=== PATIENT | female | born 1995 | race Two or more races ===

== ENCOUNTER 2016-09-08 13:21 | Inpatient (IN) | payer MEDICAID, OTHER ==
[2016-09-08] VITALS (28 sets, daily range): BP systolic 133–179; BP diastolic 69–112
[~2016-09-08] VITALS: Ht 167.6 cm; Wt 70.0 kg
[2016-09-08] MEDS ORDERED: METH10CO PO (13:30)
[2016-09-08 15:07] LABS: METHADONE URINE NEGATIVE (NEGATIVE)
[2016-09-08] MEDS ORDERED: LABETALOL HCL 100 MG/20 ML VIAL IV ONE (15:15)
[2016-09-08] MEDS ORDERED: BETAMETHASONE SOLUSPAN 6MG/ML INJ 5ML (J0702) IM SCH (15:15)
[2016-09-08 16:07] LABS: BASO # 0.1 K/mm3 (0.0-0.2); BASO % 0.4 % (0.0-1.0); EOS # 0.1 K/mm3 (0.0-0.50); EOS % 0.5 % (0.0-3.0); LARGE UNSTAINED CELL # 0.2 K/mm3 (0.0-0.4); LARGE UNSTAINED CELL % 1.4 % (0.0-4.0); LYMPH # 2.6 K/mm3 (1.5-6.5); LYMPH % 19.8 % (24.0-44.0); MEAN CORPUSCULAR HEMOGLOBIN 26.7 pg (27.0-33.0); MEAN CORPUSCULAR HGB CONC 31.9 g/dl (32.0-36.5); MEAN CORPUSCULAR VOLUME 83.9 fl (80.0-96.0); MONO # 0.6 K/mm3 (0.0-0.8); NEUTROPHILS % 72.9 % (36.0-66.0); PLATELET COUNT, AUTOMATED 460 k/mm3 (150-450); RED CELL DISTRIBUTION WIDTH 14.4 % (11.5-14.5); WHITE BLOOD COUNT 12.4 K/mm3 (4.0-10.0)
[2016-09-08 16:16] LABS: ALT/SGPT 10 U/L (12-78); AST/SGOT 14 U/L (15-37); BILIRUBIN,TOTAL 0.4 MG/DL (0.2-1.0); CREATININE FOR GFR 0.42 MG/DL (0.55-1.02)
--- NOTE | 2016-09-08 16:34 | HPE ---
DATE OF ADMISSION: 09/08/2016 Peyton is a 20-year-old 1, para 0 at 33-4/7 weeks gestation with a patient reported an EDC of 10/23/2016. Unknown basis for this EDC at this time. There are no records for review. This history and physical is based purely on interview. The patient presents to labor and delivery today with report of a gush of fluid at approximately 01:30 upon waking up. She went to the restroom cleaned her self up and denies any further leakage of fluid. She does deny any regular contractions and she denies vaginal bleeding. She does report that the fetus has been active. This patient has had no care on record. She has had a few intermittent hospital visits in [place] and again in [place]. Her care is complicated by current heroin use. She has been in and out of rehab for the last couple of years. She reports her last use of heroin three days ago. Her urine toxicology comes back positive today for opiates in the high range. She also reports hepatitis C. There are no OB labs for review at this time. PAST MEDICAL HISTORY: Her past medical history significant for hepatitis C status. SURGERIES: None. FAMILY HISTORY: Is unknown. She is adopted, has been in foster care system. SOCIAL HISTORY: She is single. The father of baby is not involved in her life, he is a in correction in [place]. She does report smoking half a pack per day. She does deny alcohol use. Again heroin use as well as Subutex for treatment on an off throughout the . She does report her last use 3 days ago. She does deny history of any sexually transmitted infections and she denies any history of abuse physical, sexual and emotional allergies. ALLERGIES: No known drug allergies. MEDICATIONS: None. OBJECTIVE: Temperature 98.1, pulse 92 and respirations 18, blood pressures are elevated in the severe range ranging from 179/104, 149/91, 169/107, 161/101, 165/100, 165/107, 170/107. She is alert and oriented times three. She does not appear to be in any acute distress. heart rate is 148 with positive excels and no decelerations observed. There is no pattern of regular contractions. Sterile speculum exam was performed. Negative Valsalva, negative pooling, negative Nitrazine, and negative ferning. Sterile vaginal exam is deferred at this time due to the patient's discomfort with speculum exam. GBS was obtained. Her abdomen is gravid. She measures 29 cm fundal height. I was unable to determine presentation due to the patient's guarding with the abdominal exam. ASSESSMENT Intrauterine at 33-4/7 weeks gestation. Unknown EDC confirmed. heart rate category one. Severe range blood pressures likely preeclampsia. PLAN: Per consult with Dr. Amanda Alamo admit the patient to labor and delivery. GBS, Saline lock, IV labetalol 20 mg IV STAT now, bedside growth ultrasound for DON growth and presentation. Betamethasone for lung maturity. panel drawn, preeclampsia profile drawn, spot urine ordered, bedrest with bathroom privileges, sequentials. After return of labs we will review and consult with Dr. Amanda Alamo regarding further plan of care. May consider induction of labor if blood pressures remain in the severe range.
--- NOTE | 2016-09-08 17:20 | REP ---
Obstetric sonography: History: Supervision of . Preeclampsia. Presentation DON growth. No care. Findings: Scanning demonstrates a viable single intrauterine cephalic fetus. motion is observed and heart rate is recorded 150 beats per minute. A posterior placenta is seen grade 2 without evidence of previa or abruption. Amniotic fluid is subjectively low. DON is decreased at 4.0 cm (8.2-24.7 cm). Closed cervical length is 2.8 cm measured transabdominally. Umbilical cord is seen draping across the shoulders. head is very low in the pelvis rendering head measurements less than optimal. The following anatomic structures are identified and felt to be unremarkable: lungs, four-chamber heart, left and right ventricular outflow tract view, diaphragm, abdominal wall cord insertion, three-vessel umbilical cord, kidneys and bladder. Biometry chart: BPD 7.9 cm 31 weeks 5 days Head circumference 28.5 cm 31 weeks 2 days Abdominal circumference 25.5 cm 29 weeks 5 days Femur length 5.7 cm 29 weeks 6 days Humeral length 5.2 cm 30 weeks 2 days HC/AC ratio normal 1.12, cephalic index normal 0.78 estimated weight 1503 grams 3 pounds 5 ounces less than 3rd percentile for 33 weeks 4 days. SD ratio in the umbilical cord artery by Doppler is upper range of normal 3.09 (2.00-3.00). Impression: Viable single intrauterine gestation at 30 weeks 4 days by today's composite sonographic criteria. According to the patient's most recently given due date her expected gestational age estimate would be 33 weeks 4 days. Estimated weight is less than 3rd percentile for this 82-tudp-7-day estimate. DAO by prior given due date is 10/23/2016. DAO by today's sonographic criteria would be 11/13/2016. head is low in position and difficult to measure. There is oligohydramnios. DON is 4.0 cm. SD ratio in the umbilical cord artery by Doppler is at the upper range of normal, 3.09. Signed by Antonio Lugo MD 09/08/2016 08:26 P
[2016-09-09 00:05] VITALS: BP 138/72
[2016-09-09 02:34] VITALS: BP 135/87
[2016-09-09 06:46] LABS: HBsAg Prenatal NEGATIVE (NEGATIVE)
[2016-09-09 07:22] VITALS: BP 148/104
[2016-09-13 14:10] LABS: HEPATITIS C QUANTITATION HCV Not Detected IU/mL (.)
== END 2016-09-09 08:13 | disposition left against medical advice (07) | DRG 566 ==
LOC: M LDO 13:21 → M LDI 15:13
PROVIDERS: ADMIT Advanced Practice Midwife; ATTEND Advanced Practice Midwife
DX: O13.3 Gestational [pregnancy-induced] hypertension without significant proteinuria, third trimester (principal); Z3A.33 33 weeks gestation of pregnancy; F11.20 Opioid dependence, uncomplicated; B19.20 Unspecified viral hepatitis C without hepatic coma; O41.03X0 Oligohydramnios, third trimester, not applicable or unspecified; O26.843 Uterine size-date discrepancy, third trimester; O36.5930 Maternal care for other known or suspected poor fetal growth, third trimester, not applicable or unspecified; O99.323 Drug use complicating pregnancy, third trimester; O98.413 Viral hepatitis complicating pregnancy, third trimester

== ENCOUNTER → 2016-12-15 | Outpatient (CLI) | payer MEDICAID ==
[~2016-12-15] MED LIST: METH10CO PO
== END ==
LOC: M OUTALCOH 15:44
PROVIDERS: ATTEND Psychiatry & Neurology Psychiatry
DX: F11.20 Opioid dependence, uncomplicated (principal)

== ENCOUNTER 2017-01-29 22:57 | Inpatient (IN) | payer MEDICAID, OTHER ==
[~2017-01-29] VITALS: Ht 167.6 cm; Wt 68.2 kg
[2017-01-30] MEDS ORDERED: ONDANSETRON 4MG/2ML VIAL (J2405) IV ONE (03:00)
[2017-01-30] MEDS ORDERED: NS 1,000 ML IV ONE (03:00)
[2017-01-30] MEDS ORDERED: KETOROLAC 30 MG/ML VIAL (J1885) IV ONE (03:00)
[2017-01-30 03:55] LABS: MEAN CORPUSCULAR HEMOGLOBIN 27.1 pg (27.0-33.0); MEAN CORPUSCULAR HGB CONC 32.6 g/dl (32.0-36.5); MEAN CORPUSCULAR VOLUME 83.2 fl (80.0-96.0); PLATELET COUNT, AUTOMATED 308 10^3/uL (150-450); RED CELL DISTRIBUTION WIDTH 13.7 % (11.5-14.5); WHITE BLOOD COUNT 14.1 10^3/uL (4.0-10.0)
[2017-01-30 04:07] LABS: CONTROL LINE HCG INT CTR LINE PRESENT
[2017-01-30 04:16] LABS: ADD MANUAL DIFFER YES; BLASTS POS FLAG; DIFF SLIDE NUMBER 74; POSITIVE DIFF POS FLAG; POSITIVE MORPH POS FLAG
[2017-01-30 04:20] LABS: ALBUMIN 3.5 GM/DL (3.2-5.2); ALBUMIN/GLOBULIN RATIO 0.76 (1.00-1.93); ALKALINE PHOSPHATASE 462 U/L (45-117); ALT/SGPT 2834 U/L (12-78); ANION GAP 6 MEQ/L (8-16); AST/SGOT 1903 U/L (7-37); BILIRUBIN,DIRECT 3.9 MG/DL (0.0-0.2); BILIRUBIN,TOTAL 5.4 MG/DL (0.2-1.0); BLOOD UREA NITROGEN 10 MG/DL (7-18); CALCIUM LEVEL 8.9 MG/DL (8.5-10.1); CARBON DIOXIDE LEVEL 28 MEQ/L (21-32); CHLORIDE LEVEL 103 MEQ/L (98-107); CREATININE FOR GFR 0.84 MG/DL (0.55-1.02); GLUCOSE, FASTING 83 MG/DL (70-105); POTASSIUM SERUM 4.5 MEQ/L (3.5-5.1); SODIUM LEVEL 137 MEQ/L (136-145); TOTAL PROTEIN 8.1 GM/DL (6.4-8.2)
[2017-01-30] MEDS ORDERED: ISOVUE-370 76% 100ML VIAL (Q9967) As Ordered ONE (04:45)
[2017-01-30 04:54] LABS: BASOPHILS 2 % (0-4); EOSINOPHILS 1 % (0-5)
[2017-01-30 04:55] LABS: INR 1.16
--- NOTE | 2017-01-30 05:20 | REPUSA ---
CLINICAL HISTORY: Abdominal pain. TECHNIQUE: Multiple axial, sagittal and coronal CT images were obtained through the abdomen and pelvi s after administration of intravenous contrast material. COMMENTS: The liver is mildly enlarged without mass or defect. There is no intra or extrahepatic biliary ductal dilatation. The spleen is mildly enlarged. The gallbladder is thickened, enhancing with surrounding small amount of free fluid. The pancreas is of normal contour and attenuation characteristics. There is no evidence of adrenal mass. Both kidneys demonstrate prompt and equal nephrograms. The kidneys are normal in size, shape and conf iguration. There is no evidence of renal or ureteral mass. No renal or ureteral calculi are identifie d. There is no hydroureter or hydronephrosis. No evidence for appendicitis. There is no bowel wall thickening. No evidence for small or large yuniel l obstruction. There is small amount of free pelvic fluid. Fluid-filled small bowels. There is no evidence of intrinsic or extrinsic bladder mass. There is small amount of free pelvic flu id. Images of the lung bases show no evidence of pleural or parenchymal mass. There are no pleural effusi ons. The bony structures are free of lytic or blastic lesions. IMPRESSION: Thickened, enhancing gallbladder. Pericholecystic free fluid. Moderate amount of fecal residue in the large bowel. Fluid-filled proximal small bowel. Mild ileus versus developing enteritis. Mild hepatomegaly. Mild splenomegaly. Thank you for your kind referral of this patient.
--- NOTE | 2017-01-30 05:40 | REPUSA ---
CLINICAL HISTORY: Abdominal pain. TECHNIQUE: Realtime sonographic images were obtained in multiple projections. COMMENTS: The liver is of normal size, parenchyma demonstrates normal echogenicity. No discrete hepatic mass is seen. There is no intra or extrahepatic biliary ductal dilatation. CBD measures 3.9 mm . The gallbladder is physiologically distended without evidence of calculi. The gallbladder wall is thickened measuring 9 .2 mm and there is small amount of pericholecystic fluid. There is no abdominal ascites. The right kidney is unremarkable. IMPRESSION: Thickened gallbladder wall. Small amount of pericholecystic free fluid. Nondilated biliary tree. Thank you for your kind referral of this patient.
[2017-01-30] MEDS ORDERED: MORPHINE 4 MG/ML 1ML SYRINGE IV PRN (06:00)
[2017-01-30] MEDS ORDERED: PIPERACILLIN/TAZOBACTAM SOD 3.375 GM in APPROPRIATE DILUENT 1 EA IV ONE (06:00)
[2017-01-30] MEDS ORDERED: METH40TA PO (06:10)
[2017-01-30] MEDS ORDERED: METOCLOPRAMIDE INJ 10MG/2ML VIAL (J2765) IV PRN (10:15)
[2017-01-30] MEDS ORDERED: MORPHINE 2 MG/ML 1ML SYRINGE IV PRN (10:15)
[2017-01-30] MEDS ORDERED: ONDANSETRON 4MG/2ML VIAL (J2405) IV PRN (10:15)
[2017-01-30] MEDS ORDERED: MOM 30ML SUSPENSION UDC PO PRN (10:15)
[2017-01-30] MEDS ORDERED: KETOROLAC 30 MG/ML VIAL (J1885) IV PRN (10:15)
[2017-01-30 12:00] VITALS: BP 134/78
[2017-01-30] MEDS ORDERED: PIPERACILLIN/TAZOBACTAM SOD 3.375 GM in APPROPRIATE DILUENT 1 EA IV SCH (12:00)
[2017-01-30] MEDS: PANTOPRAZOLE 40MG INJ (PROTONIX) (C9113) IV SCH (12:19)
[2017-01-30] MEDS: METHADONE 10 MG TAB (S0109) PO SCH (12:19)
[2017-01-30] MEDS: LR 1,000 ML IV SCH ×2 (12:19→18:33)
[2017-01-30 14:00] VITALS: BP 130/70
[2017-01-30] MEDS: HEPARIN SOD (PORCINE) 5000 UNITS/ML VIAL SC SCH ×3 (14:00→22:00)
[2017-01-30] MEDS: PIPERACILLIN/TAZOBACTAM SOD 3.375 GM in APPROPRIATE DILUENT 1 EA IV SCH ×2 (14:46→18:32)
--- NOTE | 2017-01-30 18:39 | HPE ---
DATE OF ADMISSION: 01/30/2017 REASON FOR ADMISSION: Abdominal pain. HISTORY OF PRESENT ILLNESS: The patient is a 21-year-old female who presents with two-day history of worsening right upper quadrant abdominal pain. This was associated with nausea, vomiting. Denies any fevers or chills. No heartburn or acid reflux. No changes in bowel movements or urination. She has never had a previous symptoms like this in the past. No recent travel or trauma to the area. After a significant discussion with her and finally being able to talk to her mother on the phone, she did have a remote history of hepatitis C that was never really investigated or treated. There is a history of drug abuse, and currently she is on methadone, gets her methadone from clinic down in [place]. PAST MEDICAL HISTORY: History of intravenous (IV) drug abuse. PAST SURGICAL HISTORY: Negative. ALLERGIES: None. HOME MEDICATIONS: Methadone 40 mg daily every day except for Tuesday. SOCIAL HISTORY: Smokes pack a day. Denies any current illegal drug usage and no alcohol usage. FAMILY HISTORY: Noncontributory. REVIEW OF SYSTEMS: Per positives and negatives as stated in history of present illness (HPI). PHYSICAL EXAMINATION: GENERAL: Alert and oriented times three. No acute stress. VITALS: Temperature 96.9, pulse 86, respirations 18, blood pressure 134/80. HEENT: Pupils equally round and react to light and accommodation. There is scleral icterus. HEART: S1, S2. Regular rate and rhythm. LUNGS: Clear to auscultation bilaterally. ABDOMEN: Soft. Tender to palpation right upper quadrant. Localized guarding. No rebounding or rigidity. EXTREMITIES: No clubbing, cyanosis or edema. SKIN: There is jaundice. LABORATORY DATA: White count 14.1, hemoglobin 12.6, platelets 308. Total bilirubin 5.4, direct bilirubin 3.9, AST 1903, ALT 2834, alkaline phosphatase 462, lipase 97. INR 1.16. IMAGING: Gallbladder ultrasound shows a thickened gallbladder wall at 9.2 mm, normal common bile duct at 3.9 mm. No intra or extrahepatic biliary ductal dilatation. Normal-size liver with normal echogenicity. No discrete back masses are identified. Small amount of pericholecystic fluid. ASSESSMENT/PLAN: The patient is a 21-year-old female with signs and symptoms of acute cholecystitis and some elevated transaminases and bilirubin. This could be secondary to a viral hepatitis resulting in a reactive cholecystitis. She does have a history of hepatitis C that was never completely worked up. Recommendation at this time is to treat her medically with intravenous (IV) fluids, antibiotics. I will also run a hepatitis panel to see what her serology shows. I would not recommend surgical intervention at this time with the bilirubin and transaminases at as high as they are for fear of placing her into acute liver failure. We will continue to treat her medically as long as she continues to improve. We will also consider magnetic resonance cholangiopancreatography (MCRP). If MRCP shows any signs of obstruction, that she may be a candidate for an endoscopic retrograde cholangiopancreatography (ERCP) in the future. HARDIK
[2017-01-30] MEDS: SENOKOT S TAB PO SCH ×2 (20:59→21:00)
[2017-01-30 22:00] VITALS: BP 119/59
[2017-01-31] MEDS: PIPERACILLIN/TAZOBACTAM SOD 3.375 GM in APPROPRIATE DILUENT 1 EA IV SCH ×4 (01:02→18:20)
[2017-01-31] MEDS: LR 1,000 ML IV SCH ×2 (02:14→08:55)
[2017-01-31 06:00] VITALS: BP 130/75
[2017-01-31] MEDS: HEPARIN SOD (PORCINE) 5000 UNITS/ML VIAL SC SCH ×3 (06:00→21:06)
[2017-01-31] MEDS: METHADONE 10 MG TAB (S0109) PO SCH (08:54)
[2017-01-31] MEDS: SENOKOT S TAB PO SCH ×2 (08:54→21:00)
[2017-01-31 09:14] LABS: MEAN CORPUSCULAR HEMOGLOBIN 26.7 pg (27.0-33.0); MEAN CORPUSCULAR HGB CONC 32.2 g/dl (32.0-36.5); MEAN CORPUSCULAR VOLUME 82.7 fl (80.0-96.0); PLATELET COUNT, AUTOMATED 329 10^3/uL (150-450); WHITE BLOOD COUNT 7.7 10^3/uL (4.0-10.0)
[2017-01-31 09:48] LABS: ALBUMIN 3.1 GM/DL (3.2-5.2); ALBUMIN/GLOBULIN RATIO 0.72 (1.00-1.93); ALKALINE PHOSPHATASE 380 U/L (45-117); ALT/SGPT 1827 U/L (12-78); ANION GAP 7 MEQ/L (8-16); AST/SGOT 787 U/L (7-37); BILIRUBIN,TOTAL 3.7 MG/DL (0.2-1.0); BLOOD UREA NITROGEN 6 MG/DL (7-18); CALCIUM LEVEL 8.4 MG/DL (8.5-10.1); CARBON DIOXIDE LEVEL 26 MEQ/L (21-32); CHLORIDE LEVEL 107 MEQ/L (98-107); CREATININE FOR GFR 0.79 MG/DL (0.55-1.02); GLUCOSE, FASTING 87 MG/DL (70-105); MAGNESIUM LEVEL 1.9 MG/DL (1.8-2.4); POTASSIUM SERUM 4.3 MEQ/L (3.5-5.1); SODIUM LEVEL 140 MEQ/L (136-145); TOTAL PROTEIN 7.4 GM/DL (6.4-8.2)
[2017-01-31] MEDS: PANTOPRAZOLE 40MG INJ (PROTONIX) (C9113) IV SCH (12:32)
[2017-01-31 14:00] VITALS: BP 113/82
[2017-02-01] MEDS: PIPERACILLIN/TAZOBACTAM SOD 3.375 GM in APPROPRIATE DILUENT 1 EA IV SCH ×2 (00:47→05:28)
[2017-02-01] MEDS: HEPARIN SOD (PORCINE) 5000 UNITS/ML VIAL SC SCH (05:12)
[2017-02-01 06:00] VITALS: BP 132/78
[2017-02-01 06:42] LABS: MEAN CORPUSCULAR HEMOGLOBIN 26.3 pg (27.0-33.0); MEAN CORPUSCULAR HGB CONC 32.7 g/dl (32.0-36.5); MEAN CORPUSCULAR VOLUME 80.3 fl (80.0-96.0); PLATELET COUNT, AUTOMATED 360 10^3/uL (150-450); RED CELL DISTRIBUTION WIDTH 14.1 % (11.5-14.5); WHITE BLOOD COUNT 7.2 10^3/uL (4.0-10.0)
[2017-02-01 07:07] LABS: ALBUMIN 2.7 GM/DL (3.2-5.2); ALBUMIN/GLOBULIN RATIO 0.63 (1.00-1.93); ALKALINE PHOSPHATASE 320 U/L (45-117); ALT/SGPT 1244 U/L (12-78); ANION GAP 6 MEQ/L (8-16); AST/SGOT 377 U/L (7-37); BILIRUBIN,TOTAL 2.2 MG/DL (0.2-1.0); BLOOD UREA NITROGEN 5 MG/DL (7-18); CALCIUM LEVEL 8.1 MG/DL (8.5-10.1); CARBON DIOXIDE LEVEL 27 MEQ/L (21-32); CHLORIDE LEVEL 107 MEQ/L (98-107); CREATININE FOR GFR 0.73 MG/DL (0.55-1.02); GLUCOSE, FASTING 89 MG/DL (70-105); MAGNESIUM LEVEL 1.9 MG/DL (1.8-2.4); POTASSIUM SERUM 3.6 MEQ/L (3.5-5.1); SODIUM LEVEL 140 MEQ/L (136-145)
[2017-02-01] MEDS: SENOKOT S TAB PO SCH (08:19)
[2017-02-01] MEDS: METHADONE 10 MG TAB (S0109) PO SCH (08:20)
--- NOTE | 2017-02-02 19:37 | DSES ---
DATE OF ADMISSION: 01/30/2017 DATE OF DISCHARGE: 02/01/2017 ADMISSION DIAGNOSIS: Acute viral hepatitis. DISCHARGE DIAGNOSIS: Acute vital hepatitis. HOSPITAL COURSE: The patient 21-year-old female presented to the ER on the with a week history of right upper quadrant abdominal pain. She had a little bit of nausea, no emesis. No fevers or chills. No changes in bowel movements or anything like that. She had elevated liver enzymes in the thousands elevated bilirubins and a thickened wall her gallbladder on ultrasound, so I was called to admit her for acute cholecystitis. However, due to her severely elevated liver enzymes accompanied by a normal common bile duct. I was suspicious for hepatitis rather than cholecystitis cystitis she was admitted, monitored with IV fluids antibiotics and her labs significantly improved over the first 24 hours. Her hepatitis panel came back positive for hep C and the her viral load was still pending on discharge. Within the first 12 hours of being in the hospital her pain was resolved. She was tolerating regular diet. In fact she was on clear liquid diet and was being noncompliant having her family bring her in [employer] to eat which she was tolerating well. She also was refusing labs intermittently throughout the day. By the morning of the she felt 100%. Her labs were still elevated above were continuing to improve. Her hepatitis C panel for the viral load was still pending. I spoke with Dr. Samuel from GI who agreed to see her as an outpatient and she will be discharged home today to follow up with him as an outpatient for further treatment. She will be discharged today without any medications. She does use methadone on a outpatient that she gets from her clinic in [place]. She does not need to follow up with me and she will follow up with Dr. Samuel within a week.
== END 2017-02-01 10:35 | disposition home or self-care (01) ==
LOC: M ED 22:57 → M ED INP 01-30 10:14 → M MS5PR 01-30 11:30
PROVIDERS: ADMIT Surgery; ATTEND Surgery
DX: B17.10 Acute hepatitis C without hepatic coma (principal); F17.210 Nicotine dependence, cigarettes, uncomplicated; Z79.899 Other long term (current) drug therapy

== ENCOUNTER 2017-04-23 12:09 | Emergency (ER) | payer OTHER | END 2017-04-23 13:11 | disposition home or self-care (01) | LOC: M ED 12:09 | DX: F11.20 Opioid dependence, uncomplicated (principal) | CPT/HCPCS: 99281 ==

== ENCOUNTER 2017-10-06 14:25 | Emergency (ER) | payer OTHER ==
[2017-10-06] MEDS: NS 1,000 ML IV ×2 (15:22→18:00)
[2017-10-06] MEDS: HYDROMORPHONE HCL 0.5 MG/ 0.5 ML SYRINGE (J1170 PER 1) IV (15:22)
[2017-10-06 15:28] LABS: BASO % 0.3 % (0.0-1.0); EOS % 0.2 % (0.0-3.0); HEMATOCRIT 35.8 % (36.0-47.0); HEMOGLOBIN 11.8 g/dl (12.0-15.5); IMMATURE GRANULOCYTE % 0.3 % (0-3.0); LYMPH # 2.1 10^3/uL (1.5-6.5); LYMPH % 17.8 % (24.0-44.0); MEAN CORPUSCULAR HEMOGLOBIN 27.1 pg (27.0-33.0); MEAN CORPUSCULAR VOLUME 82.1 fl (80.0-96.0); MONO # 0.7 10^3/uL (0.0-0.8); MONO % 6.4 % (0.0-5.0); NEUTROPHILS # 8.6 10^3/uL (1.8-7.7); PLATELET COUNT, AUTOMATED 578 10^3/uL (150-450); RED BLOOD COUNT 4.36 10^6/uL (4.00-5.40); RED CELL DISTRIBUTION WIDTH 12.5 % (11.5-14.5); WHITE BLOOD COUNT 11.5 10^3/uL (4.0-10.0)
[2017-10-06 15:51] LABS: CONTROL LINE HCG INT CTR LINE PRESENT; HCG, SERUM QUALITATIVE NEGATIVE (NEGATIVE)
[2017-10-06 16:07] LABS: ALBUMIN 4.1 GM/DL (3.2-5.2); ALBUMIN/GLOBULIN RATIO 0.89 (1.00-1.93); ALKALINE PHOSPHATASE 70 U/L (45-117); ALT/SGPT 24 U/L (12-78); ANION GAP 10 MEQ/L (8-16); AST/SGOT 16 U/L (7-37); BILIRUBIN,DIRECT 0.1 MG/DL (0.0-0.2); BILIRUBIN,TOTAL 0.5 MG/DL (0.2-1.0); BLOOD UREA NITROGEN 14 MG/DL (7-18); CARBON DIOXIDE LEVEL 25 MEQ/L (21-32); CHLORIDE LEVEL 104 MEQ/L (98-107); CPK CREATINE PHOSPHOKINASE 102 U/L (26-192); CREATININE FOR GFR 0.95 MG/DL (0.55-1.30); GLOMERULAR FILTRATION RATE > 60.0 (>60); GLUCOSE, FASTING 117 MG/DL (70-100); POTASSIUM SERUM 3.9 MEQ/L (3.5-5.1); SODIUM LEVEL 139 MEQ/L (136-145); TOTAL PROTEIN 8.7 GM/DL (6.4-8.2)
[2017-10-06 16:08] LABS: ACETAMINOPHEN LEVEL < 2.0 UG/ML (10.0-30.0); ETHYL ALCOHOL (ETHANOL) < 0.003 % (0.000-0.010)
[2017-10-06 16:50] LABS: PROLACTIN 46.9 NG/ML
[2017-10-06] MEDS: KETOROLAC 30 MG/ML VIAL (J1885) IV (18:00)
== END 2017-10-06 19:08 | disposition home or self-care (01) ==
LOC: M ED 14:25
DX: R56.9 Unspecified convulsions (principal); B18.2 Chronic viral hepatitis C; R00.0 Tachycardia, unspecified; Z79.899 Other long term (current) drug therapy
CPT/HCPCS: J1885

== ENCOUNTER 2017-11-14 08:00 | Emergency (ER) | payer SELFPAY, OTHER | END 2017-11-14 22:49 | disposition left against medical advice (07) | LOC: M ED 08:00 | DX: R56.9 Unspecified convulsions (principal); Z53.21 Procedure and treatment not carried out due to patient leaving prior to being seen by health care provider ==

== ENCOUNTER 2017-11-14 23:13 | Emergency (ER) | payer MEDICAID, SELFPAY, OTHER ==
[2017-11-14] MEDS: NS 1,000 ML IV ×2 (23:45)
[2017-11-14 23:54] LABS: CONTROL LINE HCG INT CTR LINE PRESENT; HCG, SERUM QUALITATIVE NEGATIVE (NEGATIVE)
[2017-11-14 23:57] LABS: HEMATOCRIT 37.4 % (36.0-47.0); MEAN CORPUSCULAR HEMOGLOBIN 27.3 pg (27.0-33.0); MEAN CORPUSCULAR HGB CONC 32.1 g/dl (32.0-36.5); MEAN CORPUSCULAR VOLUME 85.2 fl (80.0-96.0); PLATELET COUNT, AUTOMATED 505 10^3/uL (150-450); RED BLOOD COUNT 4.39 10^6/uL (4.00-5.40); RED CELL DISTRIBUTION WIDTH 13.2 % (11.5-14.5); WHITE BLOOD COUNT 9.1 10^3/uL (4.0-10.0)
[2017-11-14 23:58] LABS: OSMOLALITY SERUM 289 MOSM/KG (275-295)
[2017-11-15 00:09] LABS: ACETAMINOPHEN LEVEL < 2.0 UG/ML (10.0-30.0); ALBUMIN 3.7 GM/DL (3.2-5.2); ALBUMIN/GLOBULIN RATIO 0.82 (1.00-1.93); ALKALINE PHOSPHATASE 65 U/L (45-117); ALT/SGPT 15 U/L (12-78); ANION GAP 11 MEQ/L (8-16); AST/SGOT 19 U/L (7-37); BILIRUBIN,TOTAL 0.3 MG/DL (0.2-1.0); BLOOD UREA NITROGEN 10 MG/DL (7-18); CALCIUM LEVEL 8.5 MG/DL (8.5-10.1); CARBON DIOXIDE LEVEL 23 MEQ/L (21-32); CHLORIDE LEVEL 107 MEQ/L (98-107); CREATININE FOR GFR 0.85 MG/DL (0.55-1.30); ETHYL ALCOHOL (ETHANOL) < 0.003 % (0.000-0.010); GLOMERULAR FILTRATION RATE > 60.0 (>60); GLUCOSE, FASTING 74 MG/DL (70-100); POTASSIUM SERUM 4.2 MEQ/L (3.5-5.1); SALICYLATE LEVEL 2.3 MG/DL (5.0-30.0); SODIUM LEVEL 141 MEQ/L (136-145); TOTAL PROTEIN 8.2 GM/DL (6.4-8.2)
[2017-11-15 00:30] LABS: BEDSIDE GLUCOSE 87 MG/DL (70-105)
[2017-11-15] MEDS: PHENobarbital INJ 65 MG/ML VIAL (J2560) IV ×2 (00:33)
[2017-11-15 00:35] LABS: KETONE, URINE AUTO RFX NEGATIVE (NEGATIVE); MUCUS, URINE RFX SMALL (NEGATIVE); NITRITE, URINE AUTO RFX NEGATIVE (NEGATIVE); RBC, URINE AUTO RFX 1 /HPF (0-3); SPECIFIC GRAVITY UR AUTO RFX 1.021 (1.002-1.035); SQUAM EPITHELIAL CELL UR AURFX 0 /HPF (0-6); WBC, URINE AUTO RFX 0 /HPF (0-3)
[2017-11-15 00:38] LABS: LEUKOCYTE ESTERASE UR AUTO RFX TRACE (NEGATIVE)
[2017-11-15] MEDS: levETIRAcetam INJection 1,000 MG in D5W 100 ML IV (00:46)
[2017-11-15 00:51] LABS: AMPHETAMINES LEVEL URINE NEGATIVE (NEGATIVE); BARBITURATES URINE NEGATIVE (NEGATIVE); BENZODIAZEPINES URINE POSITIVE (NEGATIVE); CANNABINOIDS URINE POSITIVE (NEGATIVE); COCAINE METABOLITE URINE NEGATIVE (NEGATIVE); METHADONE URINE POSITIVE (NEGATIVE); OPIATES URINE POSITIVE (NEGATIVE); PHENCYCLIDINE URINE NEGATIVE (NEGATIVE)
== END 2017-11-15 04:57 | disposition home or self-care (01) ==
LOC: M ED 23:13
DX: R56.9 Unspecified convulsions (principal); F19.10 Other psychoactive substance abuse, uncomplicated
CPT/HCPCS: J1953

== ENCOUNTER 2018-06-28 21:45 | Emergency (ER) | payer MEDICAID ==
[~2018-06-28 21:45] MED LIST changes: +IBUP-1114 PO; +KEPP10002 PO; +METH10SO PO; +METH40TA PO
== END 2018-06-28 22:10 | disposition left against medical advice (07) ==
LOC: M ED 21:45
DX: F10.129 Alcohol abuse with intoxication, unspecified (principal); Z53.21 Procedure and treatment not carried out due to patient leaving prior to being seen by health care provider

== ENCOUNTER → 2018-09-09 | Outpatient (CLI) | payer MEDICAID ==
[2018-09-09 11:02] LABS: HEMATOCRIT 35.8 % (36.0-47.0); HEMOGLOBIN 11.4 g/dl (12.0-15.5); MEAN CORPUSCULAR HEMOGLOBIN 27.9 pg (27.0-33.0); MEAN CORPUSCULAR HGB CONC 31.8 g/dl (32.0-36.5); MEAN CORPUSCULAR VOLUME 87.5 fl (80.0-96.0); PLATELET COUNT, AUTOMATED 466 10^3/uL (150-450); RED BLOOD COUNT 4.09 10^6/uL (4.00-5.40); WHITE BLOOD COUNT 11.5 10^3/uL (4.0-10.0)
[2018-09-09 11:26] LABS: ALBUMIN 3.9 GM/DL (3.2-5.2); ALT/SGPT 333 U/L (12-78); BILIRUBIN,TOTAL 0.6 MG/DL (0.2-1.0); BLOOD UREA NITROGEN 14 MG/DL (7-18); CALCIUM LEVEL 8.6 MG/DL (8.5-10.1); CARBON DIOXIDE LEVEL 26 MEQ/L (21-32); CHLORIDE LEVEL 105 MEQ/L (98-107); CREATININE FOR GFR 0.76 MG/DL (0.55-1.30); GLOMERULAR FILTRATION RATE > 60.0 (>60); GLUCOSE, FASTING 89 MG/DL (70-100); POTASSIUM SERUM 4.2 MEQ/L (3.5-5.1); SODIUM LEVEL 138 MEQ/L (136-145); TOTAL PROTEIN 8.8 GM/DL (6.4-8.2)
[2018-09-09 12:40] LABS: CHLAMYDIA DNA AMPLIFICATION NEGATIVE (NEGATIVE); GC DNA AMPLIFICATION NEGATIVE (NEGATIVE)
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
[2018-09-11 10:18] LABS: HEPATITIS B SURFACE ANTIGEN NEGATIVE (NEGATIVE)
[2018-09-11 10:47] LABS: HIV 1&2 SCREEN CENTAUR NEGATIVE (NEGATIVE)
[2018-09-11 10:58] LABS: HEPATITIS C VIRUS ABY INDEX > 11.0 INDEX (<0.8)
== END ==
LOC: M LAB 10:29
PROVIDERS: ATTEND Family Medicine
DX: F11.20 Opioid dependence, uncomplicated (principal)

== ENCOUNTER 2019-06-07 21:15 | Emergency (ER) | payer MEDICAID, OTHER, SELFPAY ==
[~2019-06-07] VITALS: Ht 167.6 cm; Wt 26.9 kg
[2019-06-07] MEDS ORDERED: ACETAMINOPHEN TAB 650MG DOSE (2X325MG) PO ONE (22:00)
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
[2019-06-07 23:19] LABS: URINE PREG TEST NEGATIVE (NEGATIVE)
[2019-06-07 23:39] VITALS: BP 133/90
== END 2019-06-07 23:40 | disposition home or self-care (01) ==
LOC: M ED 21:15
DX: T76.11XA Adult physical abuse, suspected, initial encounter (principal); Z79.899 Other long term (current) drug therapy; F17.210 Nicotine dependence, cigarettes, uncomplicated

== ENCOUNTER 2022-04-24 13:11 | Emergency (ER) | payer MEDICAID, OTHER ==
[~2022-04-24] VITALS: Ht 165.1 cm; Wt 71.2 kg
[2022-04-24 15:43] LABS: BASO % 0.4 % (0.0-1.0); EOS # 0.5 10^3/uL (0.0-0.5); EOS % 5.2 % (0.0-3.0); HEMATOCRIT 37.5 % (36.0-47.0); HEMOGLOBIN 11.5 g/dl (12.0-15.5); LYMPH % 33.8 % (24.0-44.0); MEAN CORPUSCULAR HGB CONC 30.7 g/dl (32.0-36.5); MONO # 0.6 10^3/uL (0.0-0.8); MONO % 6.7 % (2.0-8.0); NEUTROPHILS # 4.8 10^3/uL (1.5-8.5); NEUTROPHILS % 53.7 % (36.0-66.0); PLATELET COUNT, AUTOMATED 465 10^3/uL (150-450); RED BLOOD COUNT 4.26 10^6/uL (4.00-5.40)
[2022-04-24 16:07] LABS: ETHYL ALCOHOL (ETHANOL) 0.004 % (0.000-0.010)
[2022-04-24 16:09] LABS: ALBUMIN 3.7 G/DL (3.2-5.2); ALKALINE PHOSPHATASE 67 U/L (46-116); ALT/SGPT 10 U/L (7.0-40); AST/SGOT 9 U/L (<34); BILIRUBIN,DIRECT 0.1 MG/DL (<0.4); BILIRUBIN,TOTAL 0.3 MG/DL (0.3-1.2); BLOOD UREA NITROGEN 11 MG/DL (9-23); CALCIUM LEVEL 8.6 MG/DL (8.5-10.1); CARBON DIOXIDE LEVEL 29 MMOL/L (20-31); CHLORIDE LEVEL 107 MMOL/L (98-107); GLOMERULAR FILTRATION RATE > 60.0 (>60); GLUCOSE, FASTING 78 MG/DL (60-100); POTASSIUM SERUM 3.9 MMOL/L (3.5-5.1); SODIUM LEVEL 141 MMOL/L (136-145); TOTAL PROTEIN 7.7 G/DL (5.7-8.2)
[2022-04-24 17:15] VITALS: BP 138/87
[2022-04-24 17:33] LABS: AMPHETAMINES LEVEL URINE NEGATIVE (NEGATIVE); BARBITURATES URINE NEGATIVE (NEGATIVE)
[2022-04-24 17:34] LABS: METHADONE URINE NEGATIVE (NEGATIVE); PHENCYCLIDINE URINE NEGATIVE (NEGATIVE)
[2022-04-24 17:40] LABS: BENZODIAZEPINES URINE POSITIVE (NEGATIVE); CANNABINOIDS URINE POSITIVE (NEGATIVE); COCAINE METABOLITE URINE POSITIVE (NEGATIVE); OPIATES URINE POSITIVE (NEGATIVE)
== END 2022-04-24 19:33 | disposition home or self-care (01) ==
LOC: EDBD 13:11 → M ED 13:11
DX: F19.10 Other psychoactive substance abuse, uncomplicated (principal); R51.9 Headache, unspecified; Y09 Assault by unspecified means; R56.9 Unspecified convulsions; B19.10 Unspecified viral hepatitis B without hepatic coma; F11.20 Opioid dependence, uncomplicated

== ENCOUNTER 2022-07-02 10:17 | Emergency (ER) | payer MEDICAID | END 2022-07-02 10:44 | disposition left against medical advice (07) | LOC: M ED 10:17 → EDBD 10:17 → M ED 10:44 | DX: T50.901A Poisoning by unspecified drugs, medicaments and biological substances, accidental (unintentional), initial encounter (principal); X58.XXXA Exposure to other specified factors, initial encounter; Y92.89 Other specified places as the place of occurrence of the external cause; Y93.89 Activity, other specified; Y99.8 Other external cause status; Z53.21 Procedure and treatment not carried out due to patient leaving prior to being seen by health care provider ==

== ENCOUNTER 2023-02-09 10:45 | Emergency (ER) | payer MEDICAID ==
[~2023-02-09] VITALS: Ht 165.1 cm; Wt 77.8 kg
[2023-02-09 10:45] VITALS: TEMP 97.8
[2023-02-09] MEDS ORDERED: METH10CO PO (10:56)
[2023-02-09] MEDS ORDERED: PRAZ1CAP (10:57)
[2023-02-09] MEDS ORDERED: CLON0.5T2 (10:57)
[2023-02-09] MEDS ORDERED: ACET-645 (10:57)
[2023-02-09] MEDS ORDERED: GABA-282 (10:57)
[2023-02-09 12:05] LABS: BASO % 0.5 % (0.0-1.0); EOS # 0.2 10^3/uL (0.0-0.5); EOS % 3.2 % (0.0-3.0); HEMATOCRIT 39.6 % (36.0-47.0); HEMOGLOBIN 12.6 g/dl (12.0-15.5); LYMPH # 2.3 10^3/uL (1.5-5.0); LYMPH % 35.3 % (24.0-44.0); MEAN CORPUSCULAR HGB CONC 31.8 g/dl (32.0-36.5); MEAN CORPUSCULAR VOLUME 84.8 fl (80.0-96.0); MONO # 0.4 10^3/uL (0.0-0.8); MONO % 6.1 % (2.0-8.0); NEUTROPHILS # 3.6 10^3/uL (1.5-8.5); NEUTROPHILS % 54.7 % (36.0-66.0); PLATELET COUNT, AUTOMATED 368 10^3/uL (150-450); RED BLOOD COUNT 4.67 10^6/uL (4.00-5.40); WHITE BLOOD COUNT 6.5 10^3/uL (4.0-10.0)
[2023-02-09] MEDS ORDERED: CHARCOAL ACTIVATED LIQUID 25GM/120ML BTL PO ONE (12:15)
[2023-02-09 12:32] LABS: ETHYL ALCOHOL (ETHANOL) 0.003 % (0.000-0.010)
[2023-02-09 12:34] LABS: ALBUMIN 3.6 G/DL (3.2-5.2); ALKALINE PHOSPHATASE 55 U/L (46-116); ALT/SGPT 16 U/L (7.0-40); AST/SGOT 24 U/L (<34); BILIRUBIN,DIRECT 0.2 MG/DL (<0.4); BILIRUBIN,TOTAL 0.6 MG/DL (0.3-1.2); BLOOD UREA NITROGEN 14 MG/DL (9-23); CALCIUM LEVEL 8.7 MG/DL (8.5-10.1); CARBON DIOXIDE LEVEL 28 MMOL/L (20-31); CHLORIDE LEVEL 104 MMOL/L (98-107); GLOMERULAR FILTRATION RATE > 60.0 (>60); GLUCOSE, FASTING 87 MG/DL (60-100); POTASSIUM SERUM 4.8 MMOL/L (3.5-5.1); SALICYLATE LEVEL < 3.0 MG/DL (<30); SODIUM LEVEL 138 MMOL/L (136-145); TOTAL PROTEIN 7.6 G/DL (5.7-8.2)
[2023-02-09 12:36] LABS: THYROID STIMULATING HORMONE 0.619 uIU/ML (0.55-4.78)
[2023-02-09 12:37] LABS: CPK CREATINE PHOSPHOKINASE 66 U/L (34-145)
[2023-02-09 12:43] LABS: HCG, SERUM QUALITATIVE NEGATIVE (NEGATIVE)
[2023-02-09 13:15] VITALS: BP 111/58
[2023-02-09 13:30] VITALS: O2SAT 99
[2023-02-09] MEDS ORDERED: MED REC IN PROGRESS XX SCH (13:50)
[2023-02-09] MEDS ORDERED: MAGNESIUM CITRATE 300ML BTL PO ONE (14:05)
[2023-02-09 14:49] LABS: AMPHETAMINES LEVEL URINE NEGATIVE (NEGATIVE); BARBITURATES URINE NEGATIVE (NEGATIVE); CANNABINOIDS URINE NEGATIVE (NEGATIVE); METHADONE URINE NEGATIVE (NEGATIVE); PHENCYCLIDINE URINE NEGATIVE (NEGATIVE)
[2023-02-09 14:51] LABS: BENZODIAZEPINES URINE POSITIVE (NEGATIVE); COCAINE METABOLITE URINE POSITIVE (NEGATIVE); OPIATES URINE POSITIVE (NEGATIVE)
== END 2023-02-09 15:08 | disposition other institution (70) ==
LOC: M ED 10:45 → CANBEDREQ 14:04 → M ED 15:08
DX: K59.00 Constipation, unspecified (principal); I45.10 Unspecified right bundle-branch block

== ENCOUNTER 2025-01-12 05:42 | Inpatient (IN) | payer MEDICAID ==
[~2025-01-12] VITALS: Ht 167.6 cm; Wt 93.3 kg
[~2025-01-12 05:42] MED LIST changes: +ACET-645; +CLON0.5T2; +GABA-1172 PO; +PRAZ1CAP PO
[2025-01-12] MEDS ORDERED: NS (Normal Saline) 0.9% 1,000 ML IV ONE (06:10)
[2025-01-12] MEDS: ACETAMINOPHEN 500 MG TAB PO ONE (06:51)
[2025-01-12] MEDS: BENZONATATE 100 MG CAPSULE PO ONE (06:51)
[2025-01-12] MEDS: [UNRECOGNIZED DRUG - OTHER] IV STA (06:51)
[2025-01-12] MEDS: NS 0.9% IV STA (06:51)
[2025-01-12] MEDS: KETOROLAC 30 MG/ML 1 ML VIAL IV ONE (06:51)
[2025-01-12 06:55] LABS: BASO # 0.0 10^3/uL (0.0-0.2); BASO % 0.2 % (0.0-1.0); EOS # 0.0 10^3/uL (0.0-0.5); EOS % 0.2 % (0.0-3.0); LYMPH # 1.8 10^3/uL (1.5-5.0); LYMPH % 11.4 % (24.0-44.0); MONO # 1.1 10^3/uL (0.0-0.8); MONO % 7.0 % (2.0-8.0); NEUTROPHILS # 13.0 10^3/uL (1.5-8.5); NEUTROPHILS % 80.6 % (36.0-66.0); PLATELET COUNT, AUTOMATED 515 10^3/uL (150-450)
[2025-01-12 07:03] LABS: KETONE, URINE AUTO RFX NEGATIVE (NEGATIVE); MUCUS, URINE RFX MODERATE (NEGATIVE); NITRITE, URINE AUTO RFX NEGATIVE (NEGATIVE); RBC, URINE AUTO RFX 2 /HPF (0-3); SQUAM EPITHELIAL CELL UR AURFX 5 /HPF (0-6); WBC, URINE AUTO RFX 6 /HPF (0-3)
[2025-01-12 07:05] LABS: LEUKOCYTE ESTERASE UR AUTO RFX TRACE (NEGATIVE)
[2025-01-12] MEDS: ALBUTEROL 90 MCG/ACT 8 GM HFA INHALER INH ONE (07:05)
[2025-01-12 07:17] LABS: INR 1.03
[2025-01-12 07:23] LABS: CK-MB VALUE MASS 1.0 NG/ML (<3.6)
[2025-01-12 07:25] LABS: HCG, SERUM QUALITATIVE NEGATIVE (NEGATIVE)
[2025-01-12 07:26] LABS: ALT/SGPT < 9 U/L (7.0-40); AST/SGOT 17 U/L (<34); CALCIUM LEVEL 8.6 MG/DL (8.5-10.1); CARBON DIOXIDE LEVEL 27 MMOL/L (20-31); CHLORIDE LEVEL 102 MMOL/L (98-107); CPK CREATINE PHOSPHOKINASE 61 U/L (34-145); CREATININE FOR GFR 0.74 MG/DL (0.55-1.30); GLOMERULAR FILTRATION RATE > 90.0 (>60); MB/CK RELATIVE INDEX 1.63 (< OR =4); POTASSIUM SERUM 3.2 MMOL/L (3.5-5.1); SODIUM LEVEL 140 MMOL/L (136-145)
[2025-01-12 07:32] LABS: C REACTIVE PROTEIN QUANTITATIV 11.75 MG/DL (<1.0)
[2025-01-12] MEDS: PIPERACILLIN/TAZOBACTAM SOD 4.5 GM in DEXTROSE 5% (D5W) ADV/MINI-BAG 50 ML IV ONE (07:46)
[2025-01-12] MEDS ORDERED: ISOVUE-370 76% 100 ML VIAL As Ordered ONE (07:55)
[2025-01-12] MEDS ORDERED: MED REC IN PROGRESS XX SCH (08:15)
[2025-01-12 08:38] LABS: CK-MB VALUE MASS 1.1 NG/ML (<3.6)
[2025-01-12 08:39] LABS: CPK CREATINE PHOSPHOKINASE 53 U/L (34-145); MB/CK RELATIVE INDEX 2.07 (< OR =4)
[2025-01-12] MEDS: METHADONE 10 MG TAB PO ONE (08:46)
[2025-01-12] MEDS: POTASSIUM CHLORIDE 10MEQ SR TABLET PO ONE (08:49)
[2025-01-12 09:48] VITALS: O2SAT 88
[2025-01-12] MEDS ORDERED: VANCOMYCIN HCL IV ONE (10:05)
[2025-01-12] MEDS ORDERED: FLUID PLACE HOLDER IV ONE (10:05)
[2025-01-12] MEDS: DOCUSATE SODIUM 100 MG CAPSULE PO ONE (10:15)
[2025-01-12] MEDS: VANCOMYCIN HCL 1,500 MG, VIAL MATE ADAPTER 1 EACH in NS 500 ML IV ONE (10:49)
[2025-01-12 11:01] LABS: BARBITURATES URINE NEGATIVE (NEGATIVE); BENZODIAZEPINES URINE NEGATIVE (NEGATIVE); CANNABINOIDS URINE NEGATIVE (NEGATIVE); OPIATES URINE NEGATIVE (NEGATIVE); PHENCYCLIDINE URINE NEGATIVE (NEGATIVE)
[2025-01-12 11:03] LABS: AMPHETAMINES LEVEL URINE POSITIVE (NEGATIVE); COCAINE METABOLITE URINE POSITIVE (NEGATIVE); METHADONE URINE POSITIVE (NEGATIVE)
[2025-01-12] MEDS ORDERED: ACETAMINOPHEN 325 MG TAB PO PRN (11:40)
[2025-01-12] MEDS ORDERED: KEPP10002 PO (12:12)
[2025-01-12] MEDS ORDERED: VENL75CA47 PO (12:13)
[2025-01-12] MEDS ORDERED: MED REC COMMENT (12:22)
[2025-01-12] MEDS: GABAPENTIN 300 MG CAP PO ONE (12:34)
[2025-01-12] MEDS: VENLAFAXINE **XR** 75MG CAPSULE PO SCH (12:35)
[2025-01-12] MEDS: PENCICLOVIR 1% CREAM 5GM TOP SCH (14:00)
[2025-01-12] MEDS: PIPERACILLIN/TAZOBACTAM SOD 4.5 GM in DEXTROSE 5% (D5W) ADV/MINI-BAG 50 ML IV SCH (14:34)
[2025-01-12] MEDS ORDERED: VANCOMYCIN HCL 1,000 MG, VIAL MATE ADAPTER 1 EACH in NS 250 ML IV SCH (17:00)
[2025-01-12 17:05] VITALS: BP 153/101; TEMP 97.7; O2SAT 95
[2025-01-12] MEDS ORDERED: GABAPENTIN 400 MG CAP PO SCH (21:00)
[2025-01-13] MEDS ORDERED: ENOXAPARIN 40 MG/0.4 ML SYRINGE (J1650 PER 10MG) SC SCH (09:00)
[2025-01-13] MEDS ORDERED: METHADONE 10 MG TAB PO SCH (09:00)
[2025-01-13] MEDS ORDERED: PRAZOSIN 1 MG CAP PO SCH (21:00)
== END 2025-01-12 17:59 | disposition left against medical advice (07) | DRG 139 ==
LOC: M ED 05:42 → M ED INP 11:36 → M MSPAV 17:06
PROVIDERS: ADMIT Internal Medicine; ATTEND Internal Medicine
DX: J18.9 Pneumonia, unspecified organism (principal); N39.0 Urinary tract infection, site not specified; G40.909 Epilepsy, unspecified, not intractable, without status epilepticus; E87.6 Hypokalemia; Z79.899 Other long term (current) drug therapy